=== PATIENT | male | born 1990 | race Caucasian/White ===

== ENCOUNTER 2018-09-02 10:39 | Emergency (ER) | payer OTHER ==
[~2018-09-02] VITALS: Ht 172.7 cm; Wt 85.7 kg
--- NOTE | 2018-09-02 10:55 | NUR ---
PT A/OX4, PRESENTS TO THE ER C/O R KNEE PAIN, PROVOKED UPON MOVEMENT, ACHING IN QUALITY, DOES NOT RADIATE, 8/10, CONSTANT. NO DEFORMITY TO THE R KNEE NOTED. VSS. PT DENIES C/P, SOB, N/V/D, DIZZINESS, HEADACHE.
--- NOTE | 2018-09-02 11:06 | NUR ---
FLORENCE BA AT BEDSIDE FOR MSE.
--- NOTE | 2018-09-02 11:25 | NUR ---
Patient discharged to home in stable conditon. Written and verbal after care instructions given. Patient verbalizes understanding of instructions. ALL BELONGINGS W/ PT. PT SELF-AMBULATED W/O DIFFICULTY.
[2018-09-02 11:26] VITALS: BP 118/72
== END 2018-09-02 11:29 | disposition home or self-care (01) ==
LOC: ER 10:39
DX: M66.88 Spontaneous rupture of other tendons, other sites (principal); X50.0XXA Overexertion from strenuous movement or load, initial encounter; Y93.89 Activity, other specified; Y92.39 Other specified sports and athletic area as the place of occurrence of the external cause; Y99.8 Other external cause status
CPT/HCPCS: A4663